=== PATIENT | male | born 1945 | race African-American/Black ===

== ENCOUNTER 2017-02-08 10:26 | Emergency (ER) | payer MEDICARE, OTHER ==
--- NOTE | 2017-02-08 10:47 | ED Physician Documentation ---
Fall - HISTORIAN Historian: patient - HPI Chief Complaint: Fall Onset: other (Monday around 1600) Context: lost balance Associated Symptoms:: brief (seconds) Location of Pain/Injury: other (Left lower ribs - anterior) Injury to Right Extremity: none Injury to Left Extremity: none Further Comments: yes (71 year old male patient presents with left anterior rib pain after falling 6 feet off a ladder on Monday afternoon. Patient states "I think I passed out when I hit the ground". Landed on left side, c/o worsening left rib cage pain, "hurts to cough". Denies shortness of breath, fever or chills.) - ROS CONST: no problems NEURO: denies: dizziness, anxiety, depression MS/SKIN/LYMPH: denies: weakness, numbness, neck pain, back pain, ankle swelling , leg swelling EYES/ENT: none CVS/RESP: none GI/: denies: nausea, vomiting - PAST HX Past History: other (HTN, depression, sleep apnea) Allergies/Adverse Reactions: Allergies Allergy/AdvReac Type Severity Reaction Status Date / Time lisinopril Allergy Mild Cough Verified 02/08/17 11:56 Home Medications: Ambulatory Orders Medication Instructions Recorded Multivitamin [Multi-Vitamin Daily] 1 each PO DAILY u2 08/20/13 Ketorolac Tromethamine [Toradol] 10 mg PO TID #15 tablet 02/08/17 - SOCIAL HX Smoking History: non-smoker Alcohol Use: other (daily cocktail) - FAMILY HX Family History: denies: none - REVIEWED ASSESSMENTS Nursing Assessment Reviewed: Yes Vitals Reviewed: Yes ED Results Lab/Radiology - Radiology Radiology Impressions: Examination: Plain film chest/ribs History: Injury Findings: 4 views of the chest and ribs demonstrates possible buckling involving the posterior margin of the 10th rib. Remaining cortical margins are within normal limits. Single view the chest does not demonstrate an enlarged cardiac silhouette. Chronic interstitial changes. No overt costophrenic margin blunting. No evidence for free air. Impression: Likely posterior 10th rib fracture. Electronically signed on Feb 08, 2017 11:23:33 AM BLUEPRINT MACHINE OPERATOR by: Yon Petit - Orders Orders: ED Orders Category Date Time Status Place IV Lock 1T Care 02/08/17 10:30 Active RIBS UNILATERAL W/ PA CHEST [RAD] Stat Exams 02/08/17 Ordered CBC/PLATELET/DIFF Stat Lab 02/08/17 10:29 Ordered CMP Stat Lab 02/08/17 10:30 Ordered UA W/MICRO IF INDICATED Stat Lab 02/08/17 10:30 Ordered EKG WITH COMPARISON Stat Ther 02/08/17 10:30 Ordered Fall Physical Exam - Physical Exam General Appearance: moderate distress Head: non-tender, no swelling, no obvious injury Neck: non-tender, painless ROM, trachea midline Eye: ROSA, EOMI, lids & conjunct. nml ENT: nml external inspection, no dental injury, no oral injury, airway nml Resp/CVS: no ecchymosis, breath sounds nml, no resp. distress, heart sounds nml , rib tenderness (left anterior rib area over ribs 10-12) Abdomen: soft, no organomegaly, normal bowel sounds, no abdominal bruit, no distension, tenderness (left upper quad with deep palpation) Neuro: oriented x3, CN's nml as tested, sensation nml, motor nml, mood/affect nml, wildlife biology internship nml, reflexes nml, wildlife biology internship symmetrical Skin: color nml, no rash, nml palp., dry Back: normal inspection, no CVA tenderness Extremities: atraumatic, pelvis stable, hips non-tender, no pedal edema, nml ROM , nml color/temp Joint: joints nml, nml ROM, Nml gait/weight bearing Discharge Clincal Impression: Right rib fracture Qualifiers: Encounter type: initial encounter Rib fracture type: single rib Fracture type: closed Qualified Code(s): S22.31XA - Fracture of one rib, right side, initial encounter for closed fracture Prescriptions: Ketorolac Tromethamine [Toradol] 10 mg PO TID #15 tablet Referrals: Isidoro Francisco MD [Primary Care Provider] - 2 Days Condition: Stable Disposition: 01 HOME, SELF-CARE Decision to Admit: NO Decision Time: 11:55
[2017-02-08 11:16] LABS: BASOPHILS % 0.5 (0.0-1.5); MEAN CORPUSCULAR HEMOGLOBIN 28.7 pg (28.0-34.0); MEAN CORPUSCULAR VOLUME 91.1 fl (80.0-100.0); MONOCYTES % 6.1 % (0.0-11.0); NEUTROPHILS # 3.6 # k/uL (1.4-7.7)
[2017-02-08 11:29] LABS: eGFR (African) > 60; eGFR (Non-African) > 60
--- NOTE | 2017-02-08 11:29 | Diagnostic Imaging Report ---
ROSAURA ROBISON (GIO) - [facility] [address] [facility] [address] [address] Report Submission Date: Feb 08, 2017 11:23:33 AM PNEUMATIC HOIST OPERATOR Patient Study Name: ABDULKADIR GARNER Date: Feb 08, 2017 11:04:20 AM PNEUMATIC HOIST OPERATOR Modality Type: CR Gender: M Description: CHEST : 49 Institution: [facility] Physician: ROSAURA ROBISON) - ER Examination: Plain film chest/ribs History: Injury Findings: 4 views of the chest and ribs demonstrates possible buckling involving the posterior margin of the 10th rib. Remaining cortical margins are within normal limits. Single view the chest does not demonstrate an enlarged cardiac silhouette. Chronic interstitial changes. No overt costophrenic margin blunting. No evidence for free air. Impression: Likely posterior 10th rib fracture. Electronically signed on Feb 08, 2017 11:23:33 AM PNEUMATIC HOIST OPERATOR by: Yon FRITZ
[2017-02-08] MEDS ORDERED: KETOROLAC TROMETHAMINE 30 MG/1ML VIAL IVP ONE (11:37)
[2017-02-08] MEDS ORDERED: fentaNYL CITRATE/PF 100 MCG/ 2ML AMP IVP ONE (11:46)
[2017-02-08 12:10] VITALS: BP 134/75
== END 2017-02-08 12:07 | disposition home or self-care (01) ==
LOC: ED 10:26
DX: S22.31XA Fracture of one rib, right side, initial encounter for closed fracture (principal); X58.XXXA Exposure to other specified factors, initial encounter; Y93.9 Activity, unspecified; Y99.9 Unspecified external cause status
CPT/HCPCS: 71101; 80053; 84484; 85025; J1885; 96372; 99283; S1016